=== PATIENT | female | born 1955 | race Caucasian/White ===

== ENCOUNTER 2017-04-23 09:34 | Day surgery (SDC) | payer MEDICAID, OTHER ==
[2017-04-23] MEDS ORDERED: PROPOFOL 500 MG/50 ML EMU IV ONE (11:15)
[2017-04-23] MEDS ORDERED: KETAMINE HYDROCHLORIDE 50 MG/ML SOL ONE (11:16)
[2017-04-23] MEDS ORDERED: FENTANYL 100MCG/2ML SOL ONE (11:16)
[2017-04-23] MEDS ORDERED: MIDAZOLAM 2 MG/2 ML SOL ONE (11:16)
[2017-04-23] MEDS ORDERED: KETOROLAC TROMETHAMINE 30 MG/ML SOL ONE (12:06)
[2017-04-23 13:04] VITALS: BP 108/69; PULSE 60; RESP 16; TEMP 98.8; O2SAT 94
== END 2017-04-23 13:45 | disposition home or self-care (01) | DRG 301 ==
LOC: SURG 09:34
PROVIDERS: ATTEND Surgery
DX: I83.811 Varicose veins of right lower extremity with pain (principal)
CPT/HCPCS: J1885; J2250; J3010; J2704; J3490

== ENCOUNTER 2018-07-20 09:00 | Day surgery (SDC) | payer OTHER ==
[~2018-07-20 09:00] MED LIST: LIDOCAINE HCL 1% MPF 30 SOL ONE; PROPOFOL 500 MG/50 ML EMU IV ONE
[2018-07-20 11:34] VITALS: TEMP 97.8
[2018-07-20 12:36] VITALS: BP 138/72; PULSE 78; RESP 20; O2SAT 95
== END 2018-07-20 11:40 | disposition home or self-care (01) | DRG 951 ==
LOC: SURG 09:00
PROVIDERS: ATTEND Surgery
DX: Z12.11 Encounter for screening for malignant neoplasm of colon (principal)
CPT/HCPCS: J2001; J2704